=== PATIENT | female | born 1970 | race Two or more races ===

== ENCOUNTER 2020-01-25 09:11 | Outpatient (CLI) | payer OTHER | END 2020-01-25 09:18 | disposition home or self-care (01) | LOC: SONOGRAMA 09:11 → MAMO-SONO 09:30 | PROVIDERS: ATTEND Obstetrics & Gynecology Gynecology | DX: D25.0 Submucous leiomyoma of uterus (principal); N93.8 Other specified abnormal uterine and vaginal bleeding; R93.89 Abnormal findings on diagnostic imaging of other specified body structures ==